=== PATIENT | male | born 1965 | race Caucasian/White ===

== ENCOUNTER 2022-10-08 18:50 | Emergency (ER) | payer BC, OTHER ==
[2022-10-08] MEDS ORDERED: Take Home: Acetaminophen/HYDROcodone 325-5 MG, 5 Tab Pack PO ONE (19:03)
== END 2022-10-08 19:20 | disposition home or self-care (01) ==
LOC: VM.ED 18:50
DX: T22.112A Burn of first degree of left forearm, initial encounter (principal); F17.210 Nicotine dependence, cigarettes, uncomplicated; X11.8XXA Contact with other hot tap-water, initial encounter
CPT/HCPCS: 99283; A9270-GY